=== PATIENT | female | born 1945 | race Caucasian/White ===

== ENCOUNTER → 2016-09-23 | Outpatient (CLI) | payer OTHER | LOC: BRMIMAGING 11:15 | DX: Z12.31 Encounter for screening mammogram for malignant neoplasm of breast (principal) | CPT/HCPCS: G0202 ==

== ENCOUNTER 2017-05-17 05:43 | Day surgery (SDC) | payer OTHER ==
--- NOTE | 2017-05-06 18:05 | GHP ---
[f rep st] HISTORY AND PHYSICAL DATE OF ADMISSION: 05/17/2017 ADMITTING DIAGNOSIS: 1. Postmenopausal bleeding. 2. Displaced intrauterine device with no strings. Unable to be removed in office. HISTORY OF PRESENT ILLNESS: Patient is a 71-year-old, 2, para 2-0-0-2 who presented to my office from the PCP's office for evaluation and treatment of postmenopausal bleeding. She states she had brownish spotting on her underwear for about 3 days last month. No previous episodes of vaginal bleeding since menopause around the age of 50. She is currently not on any hormone replacement therapy. She has a copper IUD in place. It was unable to be removed by her primary care. All Pap smears have been normal. Previous Pap was in 2012. Mother had uterine cancer at the age of 40. Patient is concerned with this bleeding and the association. Currently, she is not sexually active. A pelvic ultrasound was obtained in the office and it did show an IUD visible within the uterus. There is complex fluid within the cervical canal as well as endometrial canal. There is a simple 4x4 mm follicle on right ovary, and a simple area 8 x 6 mm on the left ovary. Endometrial thickness is at 7 mm. We discussed proceeding with an endometrial biopsy versus dilation and curettage secondary to postmenopausal bleeding and thickened endometrium. We also discussed that the IUD should be removed and that it may be difficult in the office because strings are not visualized and could not be removed by her PCP. Therefore, will proceed with the D and C, hysteroscopy, with removal of IUD in the operating room under anesthesia. The patient agrees with the plan at this time. PAST OB HISTORY: Full term vaginal delivery x2. Uncomplicated. PAST VP ORGANIZATIONAL DEVELOPMENT HISTORY: Age of menarche was 13. Cycles were regular. She is now postmenopausal since the age of 50. The patient denies any abnormal Pap smears and denies any exposure to sexually transmitted diseases. PAST MEDICAL HISTORY: Basal cell carcinoma and osteoporosis diagnosed in 2005. PAST SURGICAL HISTORY: Breast biopsy of the right breast. CURRENT MEDICATIONS: Glucosamine, Ocuvite, One A Day Women's vitamin, vitamin D3. ALLERGIES: Bacitracin. FAMILY HISTORY: Mother with uterine cancer at age of 40 and . Father with coronary artery disease, . SOCIAL HISTORY: The patient is a retired elementary special education teacher. She drinks 1-2 alcohol drinks per week. Denies any tobacco use or illicit drug use. REVIEW OF SYSTEMS: 10-point review of systems is negative. Pertinent positives noted in HPI. PHYSICAL EXAM: GENERAL: A well-nourished, well-developed female. Alert and oriented x3. No apparent distress. CARDIOVASCULAR: Regular rate and rhythm. LUNGS: Clear to auscultation bilaterally. ABDOMEN: Soft, nontender, nondistended. PELVIC: Consistent with vaginal atrophy. There were no IUD strings. The uterus was normal size, small, nontender, and mobile; adnexa were not palpable. ASSESSMENT: The patient is a 71-year-old, 2, para 2, with postmenopausal bleeding, displaced intrauterine device with no visible strings. 1. Discussed the procedure, hysteroscopy with removal of intrauterine device, dilation and curettage, which will be diagnostic and hopefully therapeutic as well. We discussed its limitations, n.p.o. status, and postop recovery. Surgical consents were obtained. Discussed risks, benefits, and alternatives with the patient including but not limited to, bleeding, infection, and risk of uterine perforation. The patient understands all risks at this time and wants to proceed with surgery. 2. Antibiotics computer operations manager to operating room. 3. Sequential compression devices for deep venous thrombosis prophylaxis. /[id number]/MODL MTDD
[2017-05-17] MEDS ORDERED: ceFAZolin 2 GM/SWFI 2 GM/20 ML SYR IVP ONE (05:52)
[2017-05-17] MEDS ORDERED: LR 1,000 ML IV ONE (05:53)
[2017-05-17] MEDS ORDERED: LIDOCAINE 1% 2 ML INJ ID PRN (05:53)
[2017-05-17 06:23] VITALS: PULSE 68
[2017-05-17] MEDS ORDERED: MIDAZOLAM 2 MG/2 ML VIAL IVP ONE (07:09)
--- NOTE | 2017-05-17 07:12 | PDANEPAE ---
ANE History of Present Illness metroragia ANE Past Medical History - Cardiovascular History Hx Hypertension: No Hx Arrhythmias: No Hx Chest Pain: No Hx Coronary Artery / Peripheral Vascular Disease: No Hx CHF / Valvular Disease: No Hx Palpitations: No - Pulmonary History Hx COPD: No Hx Asthma/Reactive Airway Disease: No Hx Recent Upper Respiratory Infection: No Hx Oxygen in Use at Home: No Hx Sleep Apnea: No Sleep Apnea Screening Result - Last Documented: Negative - Neurologic History Hx Cerebrovascular Accident: No Hx Seizures: No Hx Dementia: No - Endocrine History Hx Diabetes: No - Renal History Hx Renal Disorders: No - Liver History Hx Hepatic Disorders: No - Neurological & Psychiatric Hx Hx Neurological and Psychiatric Disorders: No - Cancer History Hx Cancer: No Cancer History Comment: basal cell skin - Congenital Disorder History Hx Congenital Disorders: No - GI History Hx Gastrointestinal Disorders: No - Other Health History Other Health History: neg - Chronic Pain History Chronic Pain: No - Surgical History Prior Surgeries: breast bxs x2 ANE Review of Systems Review of Systems: - Exercise capacity METS (RN): 4 METS ANE Patient History - Allergies Allergies/Adverse Reactions: bacitracin Allergy (Verified 05/05/17 10:05) - Home Medications Home Medications: Herbals/Supplements -Info Only 05/05/17 [Last Taken Unknown] - Smoking Hx Smoking Status: Never smoked - Family Anes Hx Family Hx Anesthesia Complications: neg ANE Labs/Vital Signs - Vital Signs Vital Signs: reviewed preoperatively; see RN documention for details Blood Pressure: 116/53 Heart Rate: 68 Respiratory Rate: 16 O2 Sat (%): 93 Height: 157.48 cm Weight: 64.41 kg ANE Physical Exam - Airway Neck exam: FROM Mallampati Score: Class 1 Mouth exam: normal dental/mouth exam - Pulmonary Pulmonary: no respiratory distress - Cardiovascular Cardiovascular: regular rate and rhythym - ASA Status ASA Status: I ANE Anesthesia Plan Anesthesia Plan: MAC
[2017-05-17] MEDS ORDERED: SILVER NITRATE APPLICATOR 1 APPL TP ONE (07:13)
[2017-05-17] MEDS ORDERED: fentaNYL 100 MCG/2 ML INJ ONE ×2 (07:16→09:09)
[2017-05-17] MEDS ORDERED: PROPOFOL/EMULSION 500 MG/50 ML BOTTLE IV ONE (07:16)
--- NOTE | 2017-05-17 07:16 | PDHPUP ---
History & Physical Update H&P update statement: This history and physical update is based on an assessment of the patient which was completed after admission or registration (within 24 hours), but prior to the surgery/procedure. H&P update: H&P reviewed & patient examined, no change in patient's condition since H&P completed
[2017-05-17] MEDS ORDERED: LIDOCAINE 1% 300 MG/30 ML SDV ONE (07:25)
[2017-05-17] MEDS ORDERED: NALOXONE HCL 0.4 MG/ML INJ IVP PRN (07:31)
[2017-05-17] MEDS ORDERED: fentaNYL 100 MCG/2 ML INJ IVP PRN (07:31)
[2017-05-17] MEDS ORDERED: HYDROmorphONE/DILAUDID 1 MG/ML INJ IVP PRN (07:31)
[2017-05-17] MEDS ORDERED: PROMETHAZINE HCL 25 MG/ML INJ IVP PRN (07:31)
[2017-05-17] MEDS ORDERED: ONDANSETRON 4 MG/2 ML VIAL IVP PRN (07:31)
[2017-05-17] MEDS ORDERED: ONDANSETRON 4 MG/2 ML VIAL ONE (08:24)
[2017-05-17] MEDS ORDERED: DEXAMETHASONE 4 MG/ML VIAL ONE (08:24)
--- NOTE | 2017-05-17 08:31 | POSTANESTH ---
Post Anesthetic Evaluation Cardiovascular Status: Normal, Stable Respiratory Status: Normal, Stable Level of Consciousness/Mental Status: Can Participate in Eval Pain Control: Adequate, Prn Tx Ordered Nausea/Vomiting Control: Adequate, Prn Tx Ordered Complications Possibly Related to Anesthesia: None Noted
--- NOTE | 2017-05-17 08:32 | POSTOPPROG ---
Post Op Note Date of Operation: 05/17/17 Surgeon: Ricarda Gutierrez Eyeglass Inspector: None Anesthesiologist: Dr. Bateman Anesthesia: GET(General Endotracheal) Pre-op Diagnosis: PMB; Displaced IUD-no strings Post-op Diagnosis: PMB; Displaced IUD-no strings; cervical stenosis; endometrial polyp Indication: 71 y/o nulliparous with PMB, EMS at 7 mm and displaced IUD with no strings Procedure: IUD removal, Dx Hysteroscopy and D&C Findings: Cervical stenosis; IUD intact with no strings; proliferative endo w/ polyp Inf/Abcess present in the surg proc area at time of surgery?: No Depth: Organ Space EBL: Minimal (<10 cc) Total fluids administered: 600 cc Complications: None Specimen(s): Endometrial curettings
[2017-05-17] MEDS ORDERED: HYDROCODONE/APAP 5/325 TAB PO PRN (08:36)
[2017-05-17 09:50] VITALS: RESP 16
[2017-05-17 11:48] VITALS: BP 109/55
[2017-05-17 12:16] VITALS: O2SAT 94
[2017-05-17 12:19] VITALS: TEMP 97.9
--- NOTE | 2017-05-17 21:59 | GOP ---
[f rep st] OPERATIVE REPORT DATE OF OPERATION: SURGEON: Ricarda Gutierrez DO ANESTHESIA: General anesthesia. ANESTHESIOLOGIST: Judit Bateman MD. PREOPERATIVE DIAGNOSIS: 1. Postmenopausal bleeding. 2. Displaced IUD, no string seen. POSTOPERATIVE DIAGNOSIS: 1. Postmenopausal bleeding. 2. Displaced IUD, no string seen. 3. Cervical stenosis. 4. Endometrial polyp. PROCEDURE PERFORMED: Diagnostic hysteroscopy, removal of IUD, dilation and curettage. FINDINGS: Cervical stenosis was noted. The cervix had to be dilated up to a #8. IUD was removed in tact with no strings visible. With the hysteroscope there was a proliferative endometrium noted. Os tia were not seen. Endometrial polyps noted. SPECIMENS: Sent to Pathology. ESTIMATED BLOOD LOSS: Less than 10 cc. INDICATIONS: The patient is a 71-year-old, nulliparous female, who presented to the office with a hi story of postmenopausal bleeding, an episode of 3 days, and was noted to have an IUD in place, [address], that could not be removed in the office. The patient did have an ultrasound that showed a thicke servando endometrium at 7 mm and the IUD within the uterine cavity. We discussed proceeding to the operat ing room for removal of IUD, hysteroscopy, with inspection of the endometrial, and dilation and curet tage which would hopefully be both therapeutic and diagnostic. We discussed the risks, benefits, alt ernatives of the procedure including bleeding, infection, risk of uterine perforation. Patient under stands all risks of the procedure and wants to proceed with surgery at this time. The patient was pr operly consented. DESCRIPTION OF PROCEDURE: The patient was taken to the operating room, where she was given an LMA fi rst, and then was given general anesthesia. She was prepped and draped in the usual sterile manner, placed in dorsal lithotomy position. An open-sided speculum was then placed in the patient's vagina and the anterior lip of the cervix was grasped with Allis clamp. There was noted to be moderate vagi nal atrophy and a very stenotic cervix. The cervix was slowly dilated up, starting with the #1, all the way up to a #8 Robert dilator. A tonsil clamp was advanced into the uterus multiple times with rem oval of the IUD. No strings were noted. IUD was intact. Then turned our attention to hysteroscopy. The hysteroscope was then advanced up into the uterus with normal saline as a distending media. Th e endometrial canal was visualized. It was visualized poorly. There was so much proliferative endom etrium. Endometrial polyps were noted. The hysteroscope was then removed with a deficit of 750 cc. We then turned our attention to the dilation and curettage. The curette was then advanced up into t he uterus. The uterus was curetted multiple times with a moderate amount of tissue. This was sent o ff to pathologist. The patient tolerated the procedure well. All instruments were removed from the vagina. Hemostasis was noted. There was, however, some bleeding from the anterior lip where the sin gle-tooth tenaculum was. Silver nitrate was placed x2. Hemostasis was assured. Sponge, lap, instru ment counts correct x2. The patient was then taken out of dorsal lithotomy position, awakened and ta renata to the recovery room in stable condition. IV FLUIDS: 600 cc LR. URINE OUTPUT: The patient emptied her bladder prior to the procedure. PATHOLOGY: Endometrial curettings. /[id number]/MODL
== END 2017-05-17 12:18 | disposition home or self-care (01) ==
LOC: FSGY 05:43
PROVIDERS: ATTEND Obstetrics & Gynecology
PROC: 0UPD8HZ Removal of Contraceptive Device from Uterus and Cervix, Via Natural or Artificial Opening Endoscopic (ICD-10-PCS; principal; 2017-05-17 07:15)
PROC: 0UDB7ZX Extraction of Endometrium, Via Natural or Artificial Opening, Diagnostic (ICD-10-PCS; principal; 2017-05-17 07:15)
DX: N95.0 Postmenopausal bleeding (principal); T83.32XA Displacement of intrauterine contraceptive device, initial encounter; N88.2 Stricture and stenosis of cervix uteri; N84.0 Polyp of corpus uteri
CPT/HCPCS: J0690; J1100; J2250; J2405; J2704; J3010

== ENCOUNTER → 2017-09-27 | Outpatient (CLI) | payer OTHER | LOC: BRMIMAGING 12:42 | PROVIDERS: ATTEND Internal Medicine | DX: Z12.31 Encounter for screening mammogram for malignant neoplasm of breast (principal) ==

== ENCOUNTER → 2018-09-29 | Outpatient (CLI) | payer OTHER | LOC: BRMIMAGING 15:02 | PROVIDERS: ATTEND Internal Medicine | DX: Z12.31 Encounter for screening mammogram for malignant neoplasm of breast (principal) ==